=== PATIENT | female | born 1995 | race African-American/Black ===

== ENCOUNTER 2017-09-09 15:06 | Emergency (ER) | payer OTHER ==
[2017-09-09] MEDS: LISSAMINE GREEN OPHTH 1.5 MG STRIP OD (16:25)
[2017-09-09] MEDS: TETRACAINE 0.5% OPHTH SOLN 4ML OD (16:30)
== END 2017-09-09 17:07 | disposition left against medical advice (07) ==
LOC: M ED 15:06
DX: H57.11 Ocular pain, right eye (principal); R51 Headache; Z53.21 Procedure and treatment not carried out due to patient leaving prior to being seen by health care provider
CPT/HCPCS: 99281

== ENCOUNTER 2018-12-14 14:02 | Emergency (ER) | payer OTHER, SELFPAY ==
[~2018-12-14] VITALS: Ht 172.7 cm; Wt 66.8 kg
[~2018-12-14 14:02] MED LIST: MOTR200T44 PO
[2018-12-14] MEDS ORDERED: FERR325T82 PO (14:12)
[2018-12-14] MEDS ORDERED: NORCO, ANEXSIA 5/325MG TABLET (HYDROcodone/ACETAMINOPHEN) PO ONE (14:45)
[2018-12-14] MEDS ORDERED: IBUP-1022 PO (15:17)
[2018-12-14 15:35] VITALS: BP 122/78
--- NOTE | 2018-12-15 07:55 | REP ---
PA CHEST WITH RIGHT RIBS: 12/14/2018. Clinical history: Trauma right lower and lateral ribs. Findings: No prior study. PA chest: Lungs are well inflated. There is no effusion, lateral pleural thickening, apical scarring or pneumothorax. Chest wall piercings inferiorly on each side in the anterior chest. Heart, mediastinal and hilar contours normal. Aorta and airway intact. No hilar or mediastinal abnormalities visible. The visible clavicles, shoulders and ribs intact. Right ribs: Four views are provided. Clavicle and scapula, humerus, thoracic spine, posterior rib articulations and the remainder of the ribs are well seen. I do not see visible or displaced rib fracture, focal rib lesion, pleural thickening, effusion or pneumothorax. Lung maynard are clear. No other findings. Impression: 1. No visible or displaced rib fracture, focal rib lesion, effusion or pneumothorax. 2. Right clavicle, scapula and humerus intact. Spine without acute finding. Electronically Signed by Byron Lockhart MD 12/15/2018 09:21 A
== END 2018-12-14 15:46 | disposition home or self-care (01) ==
LOC: M ED 14:02
DX: S20.211A Contusion of right front wall of thorax, initial encounter (principal); W22.8XXA Striking against or struck by other objects, initial encounter; Y92.018 Other place in single-family (private) house as the place of occurrence of the external cause; D50.9 Iron deficiency anemia, unspecified

== ENCOUNTER 2019-06-02 20:01 | Emergency (ER) | payer OTHER, SELFPAY ==
[~2019-06-02] VITALS: Ht 170.2 cm; Wt 66.5 kg
[~2019-06-02 20:01] MED LIST changes: +FERR325T82 PO; +IBUP-1022 PO
[2019-06-02 22:37] VITALS: BP 119/63
== END 2019-06-02 23:48 | disposition home or self-care (01) ==
LOC: M ED 20:01
DX: R05 Cough (principal); B97.89 Other viral agents as the cause of diseases classified elsewhere; Z79.899 Other long term (current) drug therapy

== ENCOUNTER 2019-06-08 22:52 | Emergency (ER) | payer OTHER ==
[~2019-06-08] VITALS: Ht 172.7 cm; Wt 66.8 kg
[2019-06-08] MEDS ORDERED: KETOROLAC 30 MG/ML VIAL (J1885) IV ONE (23:30)
[2019-06-08] MEDS ORDERED: diazePAM 10 MG/2 ML INJ (J3360) IV ONE (23:30)
[2019-06-08] MEDS ORDERED: NS 1,000 ML IV ONE (23:30)
[2019-06-08 23:39] LABS: BASO % 0.7 % (0.0-1.0); EOS # 0.4 10^3/uL (0.0-0.5); EOS % 9.7 % (0.0-3.0); HEMATOCRIT 38.3 % (36.0-47.0); HEMOGLOBIN 11.9 g/dl (12.0-15.5); LYMPH # 1.9 10^3/uL (1.5-5.0); LYMPH % 46.3 % (24.0-44.0); MEAN CORPUSCULAR HEMOGLOBIN 24.8 pg (27.0-33.0); MEAN CORPUSCULAR HGB CONC 31.1 g/dl (32.0-36.5); MONO # 0.4 10^3/uL (0.0-0.8); MONO % 9.2 % (0.0-5.0); NEUTROPHILS # 1.4 10^3/uL (1.5-8.5); NEUTROPHILS % 33.9 % (36.0-66.0); PLATELET COUNT, AUTOMATED 174 10^3/uL (150-450); RED BLOOD COUNT 4.79 10^6/uL (4.00-5.40)
--- NOTE | 2019-06-09 00:14 | REPVR ---
PROCEDURE INFORMATION: Exam: US Retroperitoneal Limited, Kidneys Exam date and time: 06/08/2019 12:02 AM Age: 24 years old Clinical indication: Abdominal pain; Flank; Right; Additional info: R CVA pain TECHNIQUE: Imaging protocol: Real-time ultrasound of the retroperitoneum with image documentation. Examination was focused on the kidneys. COMPARISON: No relevant prior studies available. FINDINGS: Right kidney: The right kidney measures 10.9 cm in its cephalocaudad dimension and 3.8 x 5.3 cm in diameter. No mass, cyst or hydronephrosis. Left kidney: The left kidney measures 11.1 cm in its cephalocaudad dimension and 5.4 x 5.3 cm in diameter. No mass, cyst or hydronephrosis. Bladder: The urinary bladder is incompletely filled. Ureteral jets are not seen. IMPRESSION: Negative renal sonogram. No hydronephrosis. Electronically signed by: John Nguyen On 06/09/2019 00:13:52 AM
[2019-06-09] MEDS ORDERED: CIPROFLOXACIN 500 MG TAB PO ONE (01:00)
[2019-06-09] MEDS ORDERED: CIPR-249 PO (01:00)
[2019-06-09] MEDS ORDERED: ROBA750T4 PO (01:00)
[2019-06-09 01:05] VITALS: BP 121/68
== END 2019-06-09 01:10 | disposition home or self-care (01) ==
LOC: M ED 22:52
DX: M54.5 Low back pain (principal); N39.0 Urinary tract infection, site not specified
CPT/HCPCS: 76775; 80047; 81001; 84702; 85025; 87088; 87186; 96361; 96374; 96375; 99284; J1885; J3360